=== PATIENT | female | born 1980 | race African-American/Black ===

== ENCOUNTER 2016-11-08 00:30 | Emergency (ER) | payer OTHER ==
[~2016-11-08] VITALS: Ht 165.1 cm; Wt 110.2 kg
--- NOTE | ~2016-11-08 | EKG ---
[address] [address] ELECTROCARDIOGRAM REPORT Name: EDWIGE BAUER Room #: [facility]ITAL[id number] Admission: 11/08/16 Attend Phys: Discharge: 11/08/16 Date of : 84 Report #: [id number] THIS REPORT FOR: //name// [facility] ED Test Date: 2016-11-08 Test Time: 00:37:50 Pat Name: EDWIGE BAUER Department: Room: Gender: F [employer]ished Good[employer] Inspector: [id number] : 1980 Requested By: Rosaura Mccollum Order Number: [id number] MD: Ángel Gandhi Measurements Intervals [place] Rate: 81 P: 34 FL: 111 QRS: 32 QRSD: 100 T: 44 QT: 383 QTc: 445 Interpretive Statements Sinus arrhythmia Borderline short [place] interval Compared to ECG 09/24/2015 23:10:39 No significant change was found Electronically Signed On 11-08-2016 8:33:29 CDT by Ángel Gandhi [email or web address] <ELECTRONICALLY SIGNED> By: Ángel Gandhi MD, [facility] 11/08/16 0833 36 Ángel Gandhi MD, FACC /EPI
[~2016-11-08 00:30] MED LIST: METFORMIN HCL500 MG PO; TRAMADOL 50 MG50 MG PO; VITAMIN D1000 UNI1 PO; ZOCOR20 MG PO
[2016-11-08 01:04] LABS: ABSOLUTE NEUTROPHILS 5.1 thou/uL (1.4-8.2); BASOPHILS 0.9 % (0.0-2.0); EOSINOPHILS 2.1 % (0.0-3.0); HEMATOCRIT 36.3 % (37.0-47.0); HEMOGLOBIN 12.1 gm/dL (12.0-15.0); LYMPHOCYTES 36.8 % (24.0-44.0); MCH 28.6 pg (26.0-34.0); MCHC 33.5 g/dL (28.0-37.0); MCV 85.4 fL (80.0-100.0); MONOCYTES 9.5 % (1.0-8.0); PLATELET COUNT 313 thou/uL (150-400); POLYS 50.7 % (36.0-66.0); RBC 4.25 mil/uL (4.20-5.00); RDW 13.2 % (10.5-14.5); WBC 10.1 thou/uL (4.0-11.0)
[2016-11-08 01:05] LABS: MANUAL DIFF NO
[2016-11-08 01:15] LABS: ANION GAP 7 mmol/L (7-16); BUN 10 mg/dL (7-18); CALCIUM 8.7 mg/dL (8.5-10.1); CHLORIDE 104 mmol/L (98-107); CO2 29 mmol/L (21-32); GLUCOSE 135 mg/dL (74-106); POTASSIUM 3.5 mmol/L (3.5-5.1); SODIUM 140 mmol/L (136-145)
[2016-11-08 01:20] LABS: TROPONIN-I < 0.04 ng/mL (<0.04-0.07)
[2016-11-08] MEDS ORDERED: TRAMADOL 50 MG50 MG PO (02:22)
[2016-11-08 02:35] VITALS: BP 118/71
== END 2016-11-08 02:36 | disposition home or self-care (01) ==
LOC: ER 00:30
PROVIDERS: Emergency Medicine
DX: R07.89 Other chest pain (principal); E11.9 Type 2 diabetes mellitus without complications; E78.00 Pure hypercholesterolemia, unspecified